=== PATIENT | female | born 1945 | race Caucasian/White ===

== ENCOUNTER 2017-11-17 02:52 | Inpatient (IN) | payer OTHER, MEDICARE ==
--- NOTE | 2017-11-14 12:34 | History & Physical Pre-Op ---
General Information and HPI History of Present Illness: Presents for re-evaluation of colonic stricture. Reattempt at colonoscopy was unsuccessful in traversing stricture in sigmoid colon. Subsequent barium enema shows stricture in mid-sigmoid. c/o occasional LLQ abdominal pain and difficulty passing bowel movements. No n/v. Allergies/Medications Allergies: Coded Allergies: MDX - Adhesive (ADHESIVE) (PULLS SKIN OFF - PAPER TAPE IS OK PER PT 08/06/16) MDX - TAPE (TAPE) (PER PT PAPER TAPE IS OKAY 08/06/16) Home Med list Cyanocobalamin (Vitamin B-12) 1,000 MCG TABLET 1 TAB PO DAILY SUPPLEMENT ( Reported) Diltiazem Cd (Diltiazem ER) 120 MG CAP.ER.DEG 120 MG PO DAILY HEAR RATE CONTROL Furosemide 20 MG TABLET 1 TAB PO DAILY PRN DIURETIC (Reported) Losartan Potassium 50 MG TABLET 1 TAB PO QAM HEART (Reported) Magnesium Oxide 400 MG TABLET 400 MG PO DAILY PRN PER PROTOCOL (Reported) Metoprolol Tartrate 100 MG TABLET 1 TAB PO BID HEART (Reported) Oxycodone HCl/Acetaminophen (Percocet 5-325 MG Tablet) 1 EACH TABLET 1 TAB PO Q4-6 PRN BREAKTHROUGH PAIN Oxycodone HCl/Acetaminophen (Percocet 5-325 MG Tablet) 5 MG-325 MG TABLET 1-2 TAB PO Q8P PRN pain Potassium Chloride 10 MEQ TABLET.ER 1 TAB PO PRN SUPPLEMENT (Reported) Simvastatin (Zocor) 10 MG TABLET 1 TAB PO QPM CHOLESTEROL (Reported) Warfarin Sodium (Coumadin) 5 MG TABLET 1 TAB PO DAILY BLOOD THINNER (Reported ) Past History Medical History Neurological: NONE EENT: NONE Cardiovascular: AFIB, hypertension, hyperlipidemia, STEMI, mechanical aortic and mitral valve replacement, rheumatic fever, SMA stent Respiratory: NONE Gastrointestinal: diverticulitis, irritable bowel syndrome Hepatic: NONE Renal: NONE Musculoskeletal: NONE Psychiatric: NONE Endocrine: NONE Blood Disorders: anemia Cancer(s): NONE History of MRSA: No History of VRE: No History of CDIFF: No Surgical History Pertinent Surgical History: cataract removal, hip replacement (b/l), tubal ligation, AAA repair, aortic valve replacement x 2 , mitral valve replacement, b /l hip replacements Past Family/Social History Family History Relations & Conditions if any BROTHER FATHER FH: prostate cancer BROTHER Psychosocial History Services at Home None Smoking Status: Former Smoker Functional Ability ADLs Independent: dressing, eating, toileting, bathing. Ambulation: independent IADLs Independent: shopping, housework, finances, food prep, telephone, medication admin. Review of Systems Review of Systems: Patient reports abdominal pain but reports no vomiting, no vomiting blood, normal appetite, no diarrhea, no constipation, no rectal bleeding, and no history of GERD. She reports no fatigue, no fever, no night sweats, no significant weight gain, no significant weight loss, and no exercise intolerance. She reports no abnormal moles, no jaundice, no hives, no eczema, and no rashes. She reports no swollen glands and no neck stiffness. She reports no cough, no wheezing, no shortness of breath, and no coughing up blood. She reports no chest pain, no arm pain on exertion, no shortness of breath when walking, no shortness of breath when lying down, no palpitations, and no leg swelling. She reports no incontinence, no difficulty urinating, no hematuria, and no increased frequency. She reports no muscle aches, no muscle weakness, no arthralgias/joint pain, and no back pain. She reports no loss of consciousness, no weakness, no numbness, no seizures, no dizziness, no loss of balance, no fall in the past year, and no fall since last visit. Exam & Diagnostic Data Physical Exam: Patient is a 72-year-old female. Constitutional: General Appearance: healthy-appearing and obese. Level of Distress: no acute distress. Ambulation: ambulating normally. Head: Head: normocephalic and atraumatic. Neck: Neck: supple, trachea midline, no masses, and full range of motion. Thyroid: no enlargement or nodules and non-tender. Lymph Nodes: no cervical LAD, supraclavicular LAD, axillary LAD, or inguinal LAD. Cardiovascular: Heart Auscultation: normal S1 and S2; no murmurs, rubs, or gallops; and regularly irregular; aortic and mitral valve click. Lungs: Respiratory effort: no dyspnea. Percussion: no dullness, flatness, or hyperresonance. Auscultation: no wheezing, rales/crackles, or rhonchi and breath sounds normal, good air movement, and clear to auscultation. Back: Thoracolumbar Appearance: normal curvature. Abdomen: Inspection and Palpation: no tenderness, guarding, masses, rebound tenderness, or CVA tenderness and soft and non-distended. Bowel Sounds: normal. Liver: non-tender and no hepatomegaly. Spleen: non-tender and no splenomegaly. Hernia: none palpable. Skin: Inspection and palpation: no rash, lesions, ulcer, induration, nodules, jaundice, or abnormal nevi and good turgor. Musculoskeletal:: Extremities: no cyanosis, varicosities, or palpable cord and edema. Motor Strength and Tone: normal tone and motor strength. Joints, Bones, and Muscles: no contractures, malalignment, tenderness, or bony abnormalities and normal movement of all extremities. Assessment/Plan Assessment/Plan: 1. Stricture of colon - Disease appears to be progressive over past year. recommend laparoscopic sigmoid colectomy before colonic obstruction develops. K56.699: Other intestinal obstruction unspecified as to partial versus complete obstruction Discussion Notes Discussed the risk of surgery including but not limited to: bleeding requiring transfusion, infection, anastomotic leak requiring reoperation as well as medical complications including cardiac, pulmonary and thromboembolism. As Ranked By This Provider Problem List: 1. Colon stricture 2. Other specified intestinal obstruction
[~2017-11-17] VITALS: Ht 152.4 cm; Wt 80.3 kg
[~2017-11-17 02:52] MED LIST: CARDIZEM CD 12120 MG PO; COUMADIN5 M2; FUROSEMIDE20 MG PO; LOPRESSOR100 M1 PO; LOSARTAN POTASS50 MG PO; LOVENOX40 MG/0.1 SC; MAGNESIUM OXID400 MG PO; PERCOCET 5-3251 EACH PO; POTASSIUM CHLO10 ME1 PO; VITAB121000 PO; ZOCOR10 M1
--- NOTE | 2017-11-17 12:14 | Cons- Cardiology ---
General Information and HPI Consulting Request Date of Consult: 11/17/17 Requested By: Liban PARRA,Hans Mullen Reason for Consult: Atrial fibrillation, prosthetic valve Source of Information: patient, family, old records History of Present Illness: This is a pleasant 72-year-old female with a past medical history of known atrial fibrillation, mechanical aortic and mechanical mitral valve prosthetics, hypertension, hyperlipidemia, and history of aortic aneurysm repair who is here for elective sigmoid colectomy due to colonic stricture. This morning she had some mild palpitations and some nausea; denies progressive shortness of breath or chest pain and the symptoms were short in duration. She notes that she does get these symptoms intermittently and does report feeling some anxiety this morning as well. On my interview with her in the same day surgery holding area she was back to baseline with no persistent symptoms. She is on outpatient Lovenox bridge for the planned surgery with no bleeding issues. Reports no headache, slurring of speech, focal weakness, syncope, or paroxysmal nocturnal dyspnea. Allergies/Medications Allergies: Coded Allergies: No Known Allergies (11/14/17) Home Med List: Enoxaparin Sodium (Lovenox) 40 MG/0.4 ML SYRINGE 0.4 ML SC DAILY ANTICOAGULATION (Reported) Metoprolol Tartrate 100 MG TABLET 1 TAB PO BID HEART (Reported) Simvastatin (Zocor) 10 MG TABLET 1 TAB PO QPM CHOLESTEROL (Reported) Warfarin Sodium (Coumadin) 5 MG TABLET 1 TAB PO DAILY BLOOD THINNER (Reported ) Current Medications: Current Medications Sig/Corby Start time Last Medication Dose Route Stop Time Status Admin Cefazolin Sodium 2,000 MG ONCE ONE 11/17 0830 CAN IV 11/18 0831 Cefazolin Sodium 2,000 MG ONCE 11/17 0000 NR IV 11/17 2359 Metronidazole 500 MG ONCE ONE 11/17 0830 DC N/A 1 UNIT IV 11/17 0929 Review of Systems Review of Systems: Review of systems as per HPI. The remainder of a 10 point review of systems was reviewed and was otherwise negative. Past History Medical History Neurological: NONE EENT: NONE Cardiovascular: AFIB, hypertension, hyperlipidemia, STEMI, mechanical aortic and mitral valve replacement rheumatic fever SMA stent Respiratory: NONE Gastrointestinal: diverticulitis, irritable bowel syndrome Hepatic: NONE Renal: NONE Musculoskeletal: NONE Psychiatric: NONE Endocrine: NONE Blood Disorders: anemia Cancer(s): NONE Surgical History Surgical History: cataract removal, hip replacement (b/l), tubal ligation, AAA repair, aortic valve replacement x 2 , mitral valve replacement, b/l hip replacements Family History Relations & Conditions If Any: BROTHER FATHER FH: prostate cancer BROTHER Psychosocial History Services at Home: None Smoking Status: Former Smoker Functional Ability ADLs Independent: dressing, eating, toileting, bathing. Ambulation: independent IADLs Independent: shopping, housework, finances, food prep, telephone, medication admin. Exam & Diagnostic Data Vital Signs and I&O Vital signs reviewed; stable Physical Exam: General: no apparent distress. Alert. Eyes: No obvious scleral icterus. HEENT: No jugular venous distention or abnormal jugular venous pulsations. Cardiovascular: Normal intensity S1/S2. Irregular; mechanical valve sounds noted Respiratory: Lungs clear to auscultation bilaterally. Abdomen: no guarding or rebound tenderness. Musculoskeletal: No clubbing or cyanosis noted Skin: Warm Neurologic: No gross focal deficits noted. Labs/Bob Results: Microbiology 11/17 1103 URINE ROUT: Urine Culture - COLB Recent labs were reviewed and show normal creatinine Diagnostic Data EKG Results Tracing was personally reviewed and shows atrial fibrillation with heart rate 91 bpm and possible left ventricular hypertrophy Other Results Echocardiogram from 09/2017 Normal biventricular function with grossly normal mechanical aortic and mitral prosthetic valves Assessment/Plan Assessment/Plan 1. Colonic stricture planned for elective laparoscopic sigmoid colectomy bridged with outpatient Lovenox 2. Known atrial fibrillation 3. History of mechanical aortic and mechanical mitral valve 4. On chronic anticoagulation with Coumadin 5. History of aortic aneurysm repair 6. History of hypertension and hyperlipidemia The patient remains stable from a cardiac standpoint with no evidence of acute coronary syndrome or decompensated congestive heart failure. She can proceed with planned surgery at mild to moderate cardiovascular risk based on her history. Resume anticoagulation post surgery as soon as deemed safe by the surgical team. Continue her outpatient AV tarik blockers which can be administered intravenously as needed while she is unable to take by mouth. She should be maintained on telemetry after surgery. Neo Raman MD [facility] Consult Acknowledgment - Thank you for your consult request.
--- NOTE | 2017-11-17 15:40 | Operative Report ---
Operative/Inv Procedure Report Surgery Date: 11/17/17 Name of Procedure: Laparoscopic converted to open sigmoid colectomy with takedown of splenic flexure Pre-Operative Diagnosis: Ischemic clonic stricture Post-Operative Diagnosis: Same Estimated Blood Loss: 50ml to 100ml Surgeon/Plastic Extruding Machine Operator: Liban PARRA,Hans Mullen/Demetris YOUNG Anesthesia: general endotracheal tube Specimens: Sigmoid colon Operative Indication: See preoperative H&P Operative/Procedure Note Note: Patient brought to the operating room and laid supine. Gen. anesthesia was obtained and her abdomen was prepped and draped in lithotomy position. Skin above the umbilicus was infiltrated local anesthesia and a longitudinal incision made sharply. We came down to the fascia bluntly and grasped with Millwood's. Fasciotomies crated sharply and stay suture placed. Pneumoperitoneum achieved. A 5 mm port was placed in the right mid abdomen, a 5 mm port was placed in the suprapubic region and a 12 mm port was placed in the right lower quadrant after local anesthesia was instilled under direct vision and camera. There were some adhesions of omentum to the anterior abdominal wall which were taken down with cautery and LigaSure dissection. The sigmoid colon was identified and explored. There was a dense inflammatory reaction around it. It felt like a rock. There was a loop of small bowel adherent to it which was taken off with sharp and blunt dissection. We then took down the white line of Toldt with cautery. We tried to dissect the area where the colon was adhered to the pelvic brim but could not free it up safely. At this point converted to an open operation through a midline incision. Subcutaneous tissues tissues dissected with cautery and the fascia was incised with cautery. Bookwalter retraction system was placed and the small bowel packed up into the right upper quadrant. There was fallopian tube and ovary, left-sided densely adherent to the sigmoid colon as well as to the pelvic brim. These tissues were peeled off with blunt and cautery dissection. The ureter was identified and preserved. We chose a line of proximal transection and created a window in the mesentery with cautery. The bowel was divided with a SWETA stapler. The mesentery was then taken with LigaSure device. Cut down to the rectosigmoid junction and divided the vasculature posteriorly. Upper rectum was then divided with a TA stapler. The specimen of sigmoid colon was passed off the field. We assessed for length of the colon. It was clear that we would have to take down the splenic flexure as there was really no redundancy to the sigmoid. The duct and the white line of Toldt with cautery and lengthened our fascial incision to provide exposure to the splenic flexure. Splenic flexure was then taken down with cautery. Was mobilized. This portion of the operation took quite a bit of time due to multiple adhesions of small bowel to the colon as well as the omentum to the anterior abdominal wall. These were all present due to her previous open aortic aneurysm repair. The mesentery was peeled off the aneurysm sac. It was, fibrotic there and limited mobilization of the colon. Once we took down the splenic flexure we could get a reasonable anastomosis without undue tension. We then open the staple line after placing an automatic purse [place]. Colon was sized to a 31 EEA and the anvil placed into it. The pursestring was cinched down. I then broke scrub and went down below and performed proctoscopy. Sizers were placed up to the rectal stump serially to dilate the area. I then passed past the stapler through the rectum but could not get it to the end were we needed it. Given the tenuous nature of necessary length to provide a tension- free anastomosis, we really needed to get the stapler to the end. Multiple tests were taken. We spent about an hour trying to pass the EEA stapler up to the rectal stump. Eventually I aborted that portion the procedure. I elected to perform a handsewn anastomosis rather than trying it 28 EEA. I thought were that another pursestring with further shorten the amount of colon needed and I did not want to have unnecessary tension. Of note the bowel was quite viable from a vascular standpoint. A single layer handsewn anastomosis was performed with interrupted 3-0 silk sutures. We tested the anastomosis under water and there was no leaks. Pelvis and irrigated normal saline. All packs were removed and sponge counts were correct. The fascia was then closed with a running 0 Maxon suture. Skin incisions closed with anish. Sterile dressings were applied. Sponge and needle counts are correct. CC: Mariya PARRA,Marquis Cordova; María PARRA,Fallon Templeton; Gen PARRA,Yahir Stewart
--- NOTE | 2017-11-17 16:39 | PN- Student ---
Geovany Bunn 11/17/17 4328: Subjective Subjective: POST OPERATIVE NOTE Claudia is a 72yo female presenting 3 hours post op colon resection r /t colonic stricture. Patient is complaining of 7/10 'burning' pain near her incisional site. She is currently on 2L Nasal Cannula, has a juan catheter in place- urine is yellow and clear, and IVF (dextrose K). She is alert and oriented during the exam and does not have any other questions or concerns at this time. Denies: H/A, changes in vision, SOB, chest pain, N/V/D, numbness/tingling in extremities or lightheadedness. Objective Objective: GENERAL: A+Ox4, in NAD, lying in bed supine. HEENT: pinpoint pupils, EOM intact, nasal cannula 2L in place. RESP: fair respiratory effort, CTAB. CARDIO: Irregular rate, irregular rythm (Hx of Afib/ mitral valve replacement and aortic valve replacement). - Cardiac monitoring in place: shows Afib with rate of 100bpm. ABD: Loud normoactive bowel sounds in all 4 quadrants. Nontender with light palpation, nondistended. Large firm mass noted in LLQ with blue/purple bruising noted. Patient denies pain on palpation. Dressing dry, intact and shows minimal spotting of blood at the incisional site. No BM/flatus at this time. MUSC: 5/5 strength throughout. No edema noted. NEURO: Sensation intact, cranial nerves grossly intact. Assessment/Plan Assessment: Claudia is a 72yo Caucasain female 3hr post op colonic resection r/t stricture. She is recovering well from the procedure and is in no acute distress. She is on 2L O2 via nasal cannula, IVF, juan catheter in place and is on cardiac monitoring. She has no questions or concerns at this time. Plan: Continue cardiac monitoring. Remove juan cath in am 11/18/2017. Continue pain medications PRN and periprocedural antibiotics. Begin clear liquid diet. Encourage Claudia to ambulate to chair/bathroom tomorrow (11/18/2017). Continue to monitor large firm mass in LLQ + bruising.- Likely 2/2 lovenox injection site. Pending labs to be ordered in am. Demetris Anegl 11/17/17 1167: Resident Review Statement Resident Statement: examined this patient, amended to note Other Findings: sp sigmoid colectomy 2/2 divertic/stricture heparin sq for dvt ppx heparin drip due to hx of afib starting in 1-2 days, coumadin bridge npo tonight, clears in am tele monitoring due to hx of afib pain meds as needed monitor for return of bowel function ivf am labs. long juan in am dressing change pod2
[2017-11-17 16:40] VITALS: BP 112/72
[2017-11-17 18:40] VITALS: BP 116/70
[2017-11-17 22:21] VITALS: BP 110/60
[2017-11-18 01:00] VITALS: BP 106/66
[2017-11-18 05:15] VITALS: BP 122/74
[2017-11-18 08:14] LABS: ABSOLUTE BASOPHIL COUNT 0 /CUMM (0.0-0.2); ABSOLUTE EOSINOPHIL COUNT 0 /CUMM (0.0-0.7); ABSOLUTE GRANULOCYTE CT 6.5 /CUMM (1.4-6.5); ABSOLUTE LYMPH COUNT 0.6 /CUMM (1.2-3.4); ABSOLUTE MONOCYTE COUNT 0.6 /CUMM (0.10-0.60); BASOPHIL % 0.1 % (0.0-2.0); EOSINOPHIL % 0 % (0-5); GRANULOCYTE % 84.2 % (42.2-75.2); HEMATOCRIT 30.6 % (37-47); MEAN CORPUSCULAR VOLUME 88.3 FL (81.0-99.0); MEAN PLATELET VOLUME 8.3 FL (7.4-10.4); PLATELET COUNT 253 /CUMM (130-400); RED BLOOD CELL CT 3.47 /CUMM (4.20-5.40); WHITE BLOOD CELL COUNT 7.7 /CUMM (4.8-10.8)
--- NOTE | 2017-11-18 08:53 | PN- General Surgery ---
See Addendum Subjective Subjective: Patient has no major complaints this morning. Overall she reports being thirsty and has been tolerating sips of water with her meds this morning. No nausea or vomiting. She is not passing flatus or having bowel movements as of yet. She had low urine output overnight and received 500 mL bolus 1. Objective Vital Signs and I&Os Vital Signs Date Time Temp Pulse Resp B/P B/P Pulse O2 O2 Flow FiO2 Mean Ox Delivery Rate 11/18 0822 94 122/74 11/18 0515 98.1 121 18 122/74 97 Nasal 2.0L Cannula 11/18 0100 98.1 107 16 106/66 98 Nasal 2.0L Cannula 11/18 0000 Nasal 2.0L Cannula 11/17 2221 97.9 89 16 110/60 97 Nasal 2.0L Cannula 11/17 2138 Nasal 2.0L Cannula 11/17 2113 102 110/62 11/17 1840 97.7 102 14 116/70 96 Nasal 2.0L Cannula 11/17 1640 97.5 105 14 112/72 96 Nasal 2.0L Cannula 11/17 1640 96 Nasal 2.0L Cannula Intake & Output 11/18 1600 11/18 0800 11/18 0000 11/17 1600 11/17 0800 11/17 0000 Intake Total 600 520 Output Total 125 120 Balance 475 400 Intake, IV 600 500 Intake, Oral 20 Output, Urine 125 120 Patient 178 lb Weight Physical Exam: Gen.: Patient is awake and alert. No acute distress. Cardiac: Irregular, tachycardic. Audible click of the valves noted. Pulmonary: Lungs are clear bilaterally. Abdomen: Soft with mild to moderate distention. Mild leanne-incisional tenderness is noted, within expected limits. There are scattered areas of ecchymosis, due to subcutaneous injections. No significant firmness is noted in the left lower quadrant in comparison to prior exams. Normoactive bowel sounds are heard. Extremities: There is mild to moderate edema of both lower extremities, left slightly greater versus right. Patient states that the swelling appears very close to baseline but maybe slightly increased. Tenderness is appreciated. Assessment/Plan Assessment/Plan Patient is a 72-year-old female who is now postoperative day #1 status post laparoscopic converted to open sigmoid colectomy for ischemic colonic stricture. Plan: -Okay to advance to clear liquid diet this morning. -Although urine output is low, we will use caution with IV fluids given her cardiac history. We'll decrease IV fluid rate to 75 per hour for about the next 6 hours to finish the current bag and then hep lock fluids. -Renew [place] today for monitoring of critical I's and O's. -Encourage out of bed and possible ambulation today. -Follow-up morning labs. Monitor H&H. If blood counts remain stable, the plan is to start a heparin drip with a bridge back to Coumadin. Okay to continue subcutaneous heparin/ALPs for DVT ppx for now. -Pain control with IV morphine for now. By mouth Percocet was added to patient' s regimen and can be given when tolerating by mouth. -Will discuss with attending. Core Measures Venous Thromboembolism VTE Risk Factors Surgery No Mechanical VTE Prophylaxis d/t N/A MechProphylax Ordered No VTE Pharm Prophylaxis d/t NA PharmProphylax ordered
[2017-11-18 10:00] VITALS: BP 122/74
[2017-11-18 14:47] VITALS: BP 104/64
[2017-11-18 19:59] LABS: ABSOLUTE BASOPHIL COUNT 0 /CUMM (0.0-0.2); ABSOLUTE EOSINOPHIL COUNT 0 /CUMM (0.0-0.7); ABSOLUTE GRANULOCYTE CT 7.2 /CUMM (1.4-6.5); ABSOLUTE LYMPH COUNT 0.8 /CUMM (1.2-3.4); ABSOLUTE MONOCYTE COUNT 0.7 /CUMM (0.10-0.60); BASOPHIL % 0.1 % (0.0-2.0); EOSINOPHIL % 0 % (0-5); GRANULOCYTE % 83.5 % (42.2-75.2); HEMATOCRIT 25.7 % (37-47); MEAN CORPUSCULAR HGB 29.3 PG (27.0-31.0); MEAN CORPUSCULAR HGB CONC 32.8 G/DL (33.0-37.0); MEAN CORPUSCULAR VOLUME 89.4 FL (81.0-99.0); MEAN PLATELET VOLUME 7.9 FL (7.4-10.4); PLATELET COUNT 218 /CUMM (130-400); RBC DISTRIBUTION WIDTH 14.5 % (11.5-14.5); RED BLOOD CELL CT 2.87 /CUMM (4.20-5.40); WHITE BLOOD CELL COUNT 8.6 /CUMM (4.8-10.8)
[2017-11-18 22:02] VITALS: BP 114/70
[2017-11-19 02:16] LABS: PTT > 120 SEC (25-37)
[2017-11-19 06:30] VITALS: BP 126/68
--- NOTE | 2017-11-19 07:11 | PN- Student ---
See Addendum Geovany Bunn 11/19/17 0710: Subjective Subjective: Claudia is a 72yo female day 2 post op sigmoid colectomy. She states she has constant 5/10 'sharp/stabbing' RUQ pain which is worse upon palpation. Patient is also complaining of 8/10 'sharp' R shoulder pain which is releived with light/deep palpation- Claudia admits this has happened with past anesthesia and it typically resolves with time. This pain does not radiate to the jaw or shoulder. She has not had a BM since the procedure but has been passing flatus since yesterday afternoon. Claudia has had minor complications relating to her fluid intake/output since her procedure on 11/17/2017.. She states she still feels 'very dry' but that this feeling has improved since yesterday (increased IVF). Patient denies: H/A, changes in vision, SOB, chest pain, N/V/D, numbness/ tingling in any extremities, dizziness or lightheadedness. No other complaints at this time. Objective Objective: GENERAL: Patient lying in bed comfortably with pleasant affect, A+Ox4 in NAD. HEENT: pinpoint pupils bilaterally, 2L O2 nasal cannula in place. No JVD noted. RESP: Decreased respiratory effort r/t discomfort- diminished breath sounds - CTAB. CARDIO: Irregular rate, irregular rhythm, S1 and S2 audible throughout, no M/R/G appreciated at this time. Patient is on cardiac catheterization technician. ABD: Soft, tender in RUQ on light palpation, non distended. LLQ has firm mass with superficial bruising noted- likely 2/2 lovenox injection site. Vertical dressingn is in place with minimal dry blood noted at incision site. No warmth/ erythema noted. No signs of infection. : Juan catheter in place. Container was recently emptied- tubing shows light straw colored urine. MUSC: 5/5 strength throughout, full ROM in UE/LE. No edema noted in extremities bilaterally. No pain upon palpation of UE/LE. R shoulder has full ROM, non painful upon palpation. NEURO: Cranial nerves grossly intact. Sensation intact throughout. Assessment/Plan Assessment: Claudia is a 72yo Caucasain female s/p day 2 sigmoid colectomy. She is recovering well from her procedure and is in no acute distress. Patient currently has juan catheter, 2L o2 nasal cannula and IVF in place. She does not show any signs of fluid overload and states she still 'feels dry.' She has not had a BM but is passing flatus since yesterday afternoon. Plan: Continue cardiac monitoring. Continue to monitor fluid input/output closely. - Keep juan catheter in place, note color/amount of output. - Will discuss increasing IVF with preceptor. - Will discuss increasing NPO to clear liquid diet with preceptor. Encourage [facility] to ambulate out of bed today. Dona Weeks 11/19/17 1832: Objective Results Results: Laboratory Tests 11/19/17 0940: PT 23.9 H, INR 2.29 H, APTT 86 H 11/19/17 0650: Anion Gap 6, Estimated GFR 55 L, BUN/Creatinine Ratio 20.0, Magnesium 1.7, CBC w Diff NO MAN DIFF REQ, RBC 3.06 L, MCV 89.0, MCH 30.2, RDW 14.7 H, MPV 8.0, Gran % 81.9 H, Lymphocytes % 10.2 L, Monocytes % 7.4, Eosinophils % 0.2, Basophils % 0.3, Absolute Granulocytes 7.4 H, Absolute Lymphocytes 0.9 L, Absolute Monocytes 0.7 H, Absolute Eosinophils 0, Absolute Basophils 0, PUBS MCHC 33.9 11/19/17 0115: APTT > 120 *H 11/18/17 1932: Anion Gap 6, Estimated GFR 34 L, BUN/Creatinine Ratio 13.3, CBC w Diff NO MAN DIFF REQ, RBC 2.87 L, MCV 89.4, MCH 29.3, RDW 14.5, MPV 7.9, Gran % 83.5 H, Lymphocytes % 8.8 L, Monocytes % 7.6, Eosinophils % 0, Basophils % 0.1, Absolute Granulocytes 7.2 H, Absolute Lymphocytes 0.8 L, Absolute Monocytes 0.7 H, Absolute Eosinophils 0, Absolute Basophils 0, PUBS MCHC 32.8 L 11/18/17 0626: Anion Gap 7, Estimated GFR > 60, BUN/Creatinine Ratio 21.3, CBC w Diff MAN DIFF ORDERED, RBC 3.47 L, MCV 88.3, MCH 30.0, RDW 14.0, MPV 8.3, Gran % 84.2 H, Lymphocytes % 8.3 L, Monocytes % 7.4, Eosinophils % 0, Basophils % 0.1, Absolute Granulocytes 6.5, Segmented Neutrophils 71, Band Neutrophils 10 H, Absolute Lymphocytes 0.6 L, Lymphocytes 11 L, Monocytes 8, Absolute Monocytes 0.6, Absolute Eosinophils 0, Absolute Basophils 0, Platelet Estimate VERIFIED BY SMEAR, Poikilocytosis 1+, [place] Cells 1+, PUBS MCHC 34.0 Microbiology 11/17 1103 URINE ROUT: Urine Culture - CAN Cancelled: SPECIMEN NOT RECEIVED IN LABORATORY 11/17 1055 URINE ROUT: Urine Culture - RECD Assessment/Plan Plan: Pt seen and examined She was dry yesterday with decreased urine output and tachy to 133 although she also has a history of a fib IVF increased and boluses given with good response Last two juan outputs 200+ She still feels very thirsty - IVF is at 125cc/hr Her lungs sound clear HR now in the 90's tolerating clear liquids, No BM - +flatus Will continue clears while awaiting bowel function Restart coumadin today per Dr Leong hep gtt to continue as a bridge to therapeutic INR Hct 27 today, INR 2.29 follow up labs in am continue juan today for strict I/O - likely dc in am
[2017-11-19 07:54] LABS: ABSOLUTE BASOPHIL COUNT 0 /CUMM (0.0-0.2); ABSOLUTE EOSINOPHIL COUNT 0 /CUMM (0.0-0.7); ABSOLUTE GRANULOCYTE CT 7.4 /CUMM (1.4-6.5); ABSOLUTE LYMPH COUNT 0.9 /CUMM (1.2-3.4); ABSOLUTE MONOCYTE COUNT 0.7 /CUMM (0.10-0.60); BASOPHIL % 0.3 % (0.0-2.0); EOSINOPHIL % 0.2 % (0-5); GRANULOCYTE % 81.9 % (42.2-75.2); HEMATOCRIT 27.2 % (37-47); MEAN CORPUSCULAR HGB 30.2 PG (27.0-31.0); MEAN CORPUSCULAR HGB CONC 33.9 G/DL (33.0-37.0); PLATELET COUNT 236 /CUMM (130-400); RBC DISTRIBUTION WIDTH 14.7 % (11.5-14.5); RED BLOOD CELL CT 3.06 /CUMM (4.20-5.40)
[2017-11-19 11:01] LABS: PTT 86 SEC (25-37)
--- NOTE | 2017-11-19 13:49 | RADIOLOGY REPORT ---
EXAMINATION: CR PORTABLE CHEST CLINICAL INFORMATION: Crackles. Hypoxia. Evaluate for atelectasis versus fluid overload. COMPARISON: Chest x-ray dated 04/23/2015 and 04/21/2015. TECHNIQUE: Portable AP semierect view of the chest was obtained. FINDINGS: The patient is status post median sternotomy and mitral valve repair. Cardiomediastinal silhouette is enlarged. Ectasia and tortuosity of the aorta is seen. There is slight elevation of the right hemidiaphragm with bibasilar parenchymal opacities seen, possibly due to atelectasis or pneumonia. There is also some patchy opacity in the right upper lobe. Left upper lobe and right midlung are clear. No significant effusion is seen. There is a sliver of free air seen under the right hemidiaphragm. Bony structures are unremarkable. IMPRESSION: 1. Free air under the right hemidiaphragm. 2. Low lung volumes with bibasilar and patchy right upper lobe parenchymal opacities, possibly due to multifocal pneumonia versus atelectasis. This critical result was discussed with HANNAH Frederick, 11/19/2017, 1:45 PM and it was ascertained that the content and urgency of this report was understood at the time of direct communication. In discussion with Suzanne Wilkinson, findings are consistent with residual intra-abdominal air 2 days status post laparoscopic abdominal surgery.
[2017-11-19 14:50] VITALS: BP 112/68
[2017-11-19 16:27] LABS: PT 23.9 SEC (9.4-12.5)
[2017-11-19 22:02] LABS: PTT 73 SEC (25-37)
[2017-11-19 22:20] VITALS: BP 136/88
[2017-11-20 06:35] VITALS: BP 130/70
--- NOTE | 2017-11-20 06:45 | PN- Student ---
Geovany Bunn 11/20/17 0644: Subjective Subjective: Claudia is a 72yo female s/p day 3 post op sigmoid colectomy. She continues to complain of sharp diffuse abdominal pain. She states this pain is a 1/10 when lying flat in bed and an 8/10 when moving/standing/walking. She says she feels 'full of gas.' She has ambulated out of bed yesterdayx1 to sit in chair. Claudia also describes constant nausea which has worsened overnight. Her right shoulder pain has completely subsided. Claudia has not had a BM since the procedure and states she has not been passing flatus although she has been belching frequently. Juan catheter is in place with clear dark yellow urine. IVF and 4L humidified O2 per nasal cannula in place. Denies H/A, SOB, chest pain, vomitting, diarrhea, paresthesias or lightheadedness. Objective Objective: GENERAL: Lying supine comfortably in bed, in no acute distress. A+Ox4. Patient has depressed affect today. RESP: Fair respiratory effor, CTAB. CARDIO: Irregular rate, irregular rhythm- HR 120bpm. Hx of Afib- paleobotanist in place. No JVD noted. ABD: Hypertympanic upon percussion. Normoactive bowel sounds in all 4 quadrants. Moderate pain on light/deep palpation throughout abdomen. Dressing is clean, dry and in place with minimal dried blood noted at incision site. No signs of erythema/infection. MUSC: 5/5 strength throughout, full ROM. Extremities moderately swollen- patient states this is normal for her, no pitting edema. No pain upon palpation of UE or LE. NEURO: Cranial nerves grossly intact. Sensation intact throughout. Results Results: Laboratory Tests 11/19/17 2123: APTT 73 H 11/19/17 0940: PT 23.9 H, INR 2.29 H, APTT 86 H 11/19/17 0650: Anion Gap 6, Estimated GFR 55 L, BUN/Creatinine Ratio 20.0, Magnesium 1.7, CBC w Diff NO MAN DIFF REQ, RBC 3.06 L, MCV 89.0, MCH 30.2, RDW 14.7 H, MPV 8.0, Gran % 81.9 H, Lymphocytes % 10.2 L, Monocytes % 7.4, Eosinophils % 0.2, Basophils % 0.3, Absolute Granulocytes 7.4 H, Absolute Lymphocytes 0.9 L, Absolute Monocytes 0.7 H, Absolute Eosinophils 0, Absolute Basophils 0, PUBS MCHC 33.9 11/19/17 0115: APTT > 120 *H 11/18/17 1932: Anion Gap 6, Estimated GFR 34 L, BUN/Creatinine Ratio 13.3, CBC w Diff NO MAN DIFF REQ, RBC 2.87 L, MCV 89.4, MCH 29.3, RDW 14.5, MPV 7.9, Gran % 83.5 H, Lymphocytes % 8.8 L, Monocytes % 7.6, Eosinophils % 0, Basophils % 0.1, Absolute Granulocytes 7.2 H, Absolute Lymphocytes 0.8 L, Absolute Monocytes 0.7 H, Absolute Eosinophils 0, Absolute Basophils 0, PUBS MCHC 32.8 L 11/18/17 0626: Anion Gap 7, Estimated GFR > 60, BUN/Creatinine Ratio 21.3, CBC w Diff MAN DIFF ORDERED, RBC 3.47 L, MCV 88.3, MCH 30.0, RDW 14.0, MPV 8.3, Gran % 84.2 H, Lymphocytes % 8.3 L, Monocytes % 7.4, Eosinophils % 0, Basophils % 0.1, Absolute Granulocytes 6.5, Segmented Neutrophils 71, Band Neutrophils 10 H, Absolute Lymphocytes 0.6 L, Lymphocytes 11 L, Monocytes 8, Absolute Monocytes 0.6, Absolute Eosinophils 0, Absolute Basophils 0, Platelet Estimate VERIFIED BY SMEAR, Poikilocytosis 1+, [place] Cells 1+, PUBS MCHC 34.0 Microbiology 11/17 1103 URINE ROUT: Urine Culture - CAN Cancelled: SPECIMEN NOT RECEIVED IN LABORATORY 11/17 1055 URINE ROUT: Urine Culture - RECD Assessment/Plan Assessment: Claudia is a 72yo female s/p day 3 post op sigmoid colectomy. Patient is recovering well from the procedure although shows possible signs of obstruction as she has not passed gas or BM since the procedure and is hypertympanic upon percussion. Patient has experienced mild complications post op because 2/2 CHF and fluid imbalance. She does not show any signs of fluid overload. Plan: PT consult- encourage mild ambulation throughout the day. Increase IVF as her urine is dark in color and her mucus membranes are dry. - Keep juan catheter in place to monitor I/O adequately. Change dressing from procedure and visualize wound directly. Begin soft food diet as tolerated. Rosalee Gauthier 11/20/17 0803: Subjective Subjective: "I wish I felt better". Nauseous, no vomiting. Belching, no flatus, no BM. barely taking sips clears. minimal OOB. Denies CP/SOB/palps. Objective Objective: GEN: NAD CARD: tachy, irreg irreg. HR on monitor 120-140s. PULM: decreased at bases ABD: dist, ttp, soft, dressing changed- serosang drainage inferior aspect of dressing. post sites cdi. anish intact EXT: calves soft nt Results Results: Laboratory Tests 11/20/17 0635: Anion Gap 4 L, Estimated GFR > 60, BUN/Creatinine Ratio 17.1, PT Pending, INR Pending, CBC w Diff Pending, WBC Pending, RBC Pending, Hgb Pending, Hct Pending, MCV Pending, MCH Pending, RDW Pending, Plt Count Pending, MPV Pending, PUBS MCHC Pending 11/19/17 2123: APTT 73 H Assessment/Plan Plan: AP: POD3 sp lap sigmoid, awaating return bowel fxn, with extensive cardiac history, currently in rapid afib, with nausea likely due to combination of postop ileus and rapid afib, on hep gtt-coum bridge, with resolved BREANA. -give home BB now. If HR without response, will give additional iv bb. will ask for additional cards input -dc juan. strict I&Os - prn pain meds - keep clear liquids. await further bowel fxn. - oob , ambulate. - as long as INR tx today, will dc hep gtt and cont coum per inr - cont IVF - will dw attending
[2017-11-20 07:57] LABS: ABSOLUTE BASOPHIL COUNT 0 /CUMM (0.0-0.2); ABSOLUTE EOSINOPHIL COUNT 0.1 /CUMM (0.0-0.7); ABSOLUTE GRANULOCYTE CT 6.3 /CUMM (1.4-6.5); ABSOLUTE LYMPH COUNT 0.7 /CUMM (1.2-3.4); ABSOLUTE MONOCYTE COUNT 0.4 /CUMM (0.10-0.60); BASOPHIL % 0.2 % (0.0-2.0); EOSINOPHIL % 0.9 % (0-5); HEMATOCRIT 25.4 % (37-47); MEAN CORPUSCULAR HGB 29.7 PG (27.0-31.0); MEAN CORPUSCULAR HGB CONC 33.7 G/DL (33.0-37.0); MEAN CORPUSCULAR VOLUME 88.1 FL (81.0-99.0); MEAN PLATELET VOLUME 7.9 FL (7.4-10.4); RBC DISTRIBUTION WIDTH 14.9 % (11.5-14.5); RED BLOOD CELL CT 2.88 /CUMM (4.20-5.40); WHITE BLOOD CELL COUNT 7.5 /CUMM (4.8-10.8)
[2017-11-20 08:15] LABS: PT 23.8 SEC (9.4-12.5)
[2017-11-20 08:52] LABS: GRANULOCYTE % 83.7 % (42.2-75.2); PLATELET COUNT 203 /CUMM (130-400)
--- NOTE | 2017-11-20 09:21 | PN- General Surgery ---
Surgical Brief Attending Note Brief Attending Note: Overall slow resolution of ileus. continue clears. Patient with mobilization of third spaced fluids now. can decrease ivf and remove juan. continue heparin/ coumadin, goal INR 2.5-3.5.
[2017-11-20 10:37] LABS: PTT 61 SEC (25-37)
[2017-11-20 12:00] VITALS: BP 128/70
--- NOTE | 2017-11-20 12:49 | PN- Cardiology ---
Subjective Subjective: Patient continues to complain of intractable nausea. Denies any chest pain or palpitations. No bowel movement but reports passing gas this morning. Objective Vital Signs and I&Os Vital Signs Date Time Temp Pulse Resp B/P B/P Pulse O2 O2 Flow FiO2 Mean Ox Delivery Rate 11/20 1200 97.8 116 20 128/70 93 Nasal 2.0L Cannula 11/20 08 120 138/80 11/20 0800 Nasal 2.0L Cannula 11/20 0635 98.7 104 20 130/70 93 Nasal 2.0L Cannula 11/19 2220 97.6 106 18 136/88 100 Nasal Cannula 11/19 2135 Nasal 2.0L Cannula 11/19 2113 106 136/88 11/19 1600 97 Nasal 2.0L Cannula 11/19 1450 97.5 96 20 112/68 97 Nasal 2.0L Cannula Intake & Output 11/20 1600 11/20 0800 11/20 0000 11/19 1600 11/19 0800 11/19 0000 Intake Total 876 743.5 1100 1050 300 Output Total 550 550 225 200 225 100 Balance -550 326 518.5 900 825 200 Intake, IV 756 433.5 1000 1050 300 Intake, Oral 120 310 100 Output, Urine 550 550 225 200 225 100 Physical Exam: General: no apparent distress. Alert. Eyes: No obvious scleral icterus. HEENT: No jugular venous distention or abnormal jugular venous pulsations. Cardiovascular: Normal intensity S1/S2. Irregular; mechanical valve sounds noted Respiratory: Lungs clear to auscultation bilaterally. Abdomen: Soft Musculoskeletal: No clubbing or cyanosis noted Skin: Warm Neurologic: No gross focal deficits noted. Current Medications: Current Medications Sig/Corby Start time Last Medication Dose Route Stop Time Status Admin Acetaminophen 650 MG Q6P PRN 11/17 1700 AC PO Atorvastatin Calcium 5 MG 1700 11/17 1700 AC 11/19 PO 1713 Dextrose/Sodium 1,000 ML Q10H 11/18 1615 AC 11/19 Chloride IV 2314 Heparin Sodium 25,000 UNIT Q24H 11/18 1845 AC 11/18 (Porcine) IV 1854 Sodium Chloride 500 ML Metoprolol Tartrate 100 MG BID 11/17 2200 AC 11/20 PO 0807 Morphine Sulfate 2 MG Q4P PRN 11/18 220 AC 11/19 IV 1713 Ondansetron HCl 4 MG Q6P PRN 11/17 1700 AC 11/20 IV 0359 Oxycodone/ 1 TAB Q4P PRN 11/18 899 AC Acetaminophen PO Oxycodone/ 2 TAB Q4P PRN 11/18 899 AC Acetaminophen PO Promethazine HCl 12.5 MG Q6P PRN 11/17 1700 AC 11/20 IV 11/24 1459 0729 Trimethobenzamide HCl 200 MG 4 TIMES/DAY PRN 11/20 799 AC 11/20 IM 1104 Warfarin Sodium 5 MG COUMADIN 170 ONE 11/20 170 AC PO 11/20 170 Warfarin Sodium 5 MG COUMADIN 170 ONE 11/19 1700 DC 11/19 PO 11/19 1701 1713 Results Last 48 Hrs of Labs/Mics: Laboratory Tests 11/20/17 1000: APTT 61 H 11/20/17 0635: Anion Gap 4 L, Estimated GFR > 60, BUN/Creatinine Ratio 17.1, PT 23.8 H, INR 2.29 H, CBC w Diff NO MAN DIFF REQ, RBC 2.88 L, MCV 88.1, MCH 29.7, RDW 14.9 H, MPV 7.9, Gran % 83.7 H, Lymphocytes % 9.3 L, Monocytes % 5.9, Eosinophils % 0.9, Basophils % 0.2, Absolute Granulocytes 6.3, Absolute Lymphocytes 0.7 L, Absolute Monocytes 0.4, Absolute Eosinophils 0.1, Absolute Basophils 0, PUBS MCHC 33.7 11/19/17 2123: APTT 73 H 11/19/17 0940: PT 23.9 H, INR 2.29 H, APTT 86 H 11/19/17 0650: Anion Gap 6, Estimated GFR 55 L, BUN/Creatinine Ratio 20.0, Magnesium 1.7, CBC w Diff NO MAN DIFF REQ, RBC 3.06 L, MCV 89.0, MCH 30.2, RDW 14.7 H, MPV 8.0, Gran % 81.9 H, Lymphocytes % 10.2 L, Monocytes % 7.4, Eosinophils % 0.2, Basophils % 0.3, Absolute Granulocytes 7.4 H, Absolute Lymphocytes 0.9 L, Absolute Monocytes 0.7 H, Absolute Eosinophils 0, Absolute Basophils 0, PUBS MCHC 33.9 11/19/17 0115: APTT > 120 *H 11/18/17 1932: Anion Gap 6, Estimated GFR 34 L, BUN/Creatinine Ratio 13.3, CBC w Diff NO MAN DIFF REQ, RBC 2.87 L, MCV 89.4, MCH 29.3, RDW 14.5, MPV 7.9, Gran % 83.5 H, Lymphocytes % 8.8 L, Monocytes % 7.6, Eosinophils % 0, Basophils % 0.1, Absolute Granulocytes 7.2 H, Absolute Lymphocytes 0.8 L, Absolute Monocytes 0.7 H, Absolute Eosinophils 0, Absolute Basophils 0, PUBS MCHC 32.8 L Recent Imaging Studies: Telemetry tracings were personally reviewed and show atrial fibrillation with rapid ventricular response rate Assessment/Plan Assessment/Plan 1. Colonic stricture planned for elective laparoscopic sigmoid colectomy bridged with outpatient Lovenox; s/p open sigmoid colectomy with takedown of splenic flexure 2. Known atrial fibrillation 3. History of mechanical aortic and mechanical mitral valve 4. On chronic anticoagulation with Coumadin 5. History of aortic aneurysm repair 6. History of hypertension and hyperlipidemia Patient reports feeling quite uncomfortable with persistent nausea which I suspect is in part driving her tachycardia; can continue the twice a day Lopressor and start on Cardizem drip for the time being until her postoperative symptoms improve. Continue on heparin drip until INR is above 2.5. Neo Raman MD [facility] Continue telemetry? Yes
[2017-11-20 14:53] VITALS: BP 138/84
[2017-11-20 22:16] VITALS: BP 122/62
[2017-11-20 23:03] LABS: PTT 67 SEC (25-37)
[2017-11-21 06:15] VITALS: BP 118/78
--- NOTE | 2017-11-21 07:05 | PN- Student ---
Geovany Bunn 11/21/17 0705: Subjective Subjective: Patient is a 72yo female post op day 4 s/p sigmoid colectomy. Today she states her pain is minimal (1/10) and she is 'feeling much better.' She attributes this to the onset of passing flatus yesterday afternoon. She says this flatus is paired with small dark maroon blood clots/minimal BRBPR. Claudia says her appetite has returned and she would like to start eating foods as she is feeling much better today. Denies JESSICA, vision changes, SOB, chest pain, N/V/D, paresthesias or syncope. No complaints at this time. Objective Objective: GENERAL: Patient is lying supine comfortably in bed, in no acute distress. She has a pleasant affect and is A+Ox4. Patient is on 3L humidified O2 per nasal cannula, IVF in place. Juan catheter was removed 11/20/2017. She has been urinating~ 200ml per episode without discomfort. Urine was left in hat- clear, straw yellow, small white particles floating 2/2 juan removal. RESP: Increased respiratory effort from previous visits. CTAB. CARDIO: Irregular rate, irregular rhythm- Afib- on security assessor/cardizem drip. No M/R/G noted. ABD: Dressing has been removed 11/20/17. Incision is clean, dry and free of any signs of erythema/infection. She has one large vertical linear incision at the midline and 2 small incision points on the right side of the abdomen- all healing well. Abdomen is less distended than on previous visits. Mild tenderness in RLQ on deep palpation. Tympanic throughout. Loud normoactive bowel sounds audbile in all 4 quadrants. MUSC: 5/5 strength and full ROM throughout. No edema. Non painful to palpation. NEURO: sensation intact throughout. Results Results: Laboratory Tests 11/21/17 0631: Sodium Pending, Potassium Pending, Chloride Pending, Carbon Dioxide Pending, Anion Gap Pending, BUN Pending, Creatinine Pending, BUN/Creatinine Ratio Pending , PT Pending, INR Pending, CBC w Diff Pending, WBC Pending, RBC Pending, Hgb Pending, Hct Pending, MCV Pending, MCH Pending, RDW Pending, Plt Count Pending, MPV Pending, PUBS MCHC Pending 11/20/17 2205: APTT 67 H 11/20/17 1000: APTT 61 H 11/20/17 0635: Anion Gap 4 L, Estimated GFR > 60, BUN/Creatinine Ratio 17.1, PT 23.8 H, INR 2.29 H, CBC w Diff NO MAN DIFF REQ, RBC 2.88 L, MCV 88.1, MCH 29.7, RDW 14.9 H, MPV 7.9, Gran % 83.7 H, Lymphocytes % 9.3 L, Monocytes % 5.9, Eosinophils % 0.9, Basophils % 0.2, Absolute Granulocytes 6.3, Absolute Lymphocytes 0.7 L, Absolute Monocytes 0.4, Absolute Eosinophils 0.1, Absolute Basophils 0, [facility] 33.7 11/19/17 2123: APTT 73 H 11/19/17 0940: PT 23.9 H, INR 2.29 H, APTT 86 H 11/19/17 0650: Anion Gap 6, Estimated GFR 55 L, BUN/Creatinine Ratio 20.0, Magnesium 1.7, CBC w Diff NO MAN DIFF REQ, RBC 3.06 L, MCV 89.0, MCH 30.2, RDW 14.7 H, MPV 8.0, Gran % 81.9 H, Lymphocytes % 10.2 L, Monocytes % 7.4, Eosinophils % 0.2, Basophils % 0.3, Absolute Granulocytes 7.4 H, Absolute Lymphocytes 0.9 L, Absolute Monocytes 0.7 H, Absolute Eosinophils 0, Absolute Basophils 0, [facility] 33.9 11/19/17 0115: APTT > 120 *H 11/18/17 1932: Anion Gap 6, Estimated GFR 34 L, BUN/Creatinine Ratio 13.3, CBC w Diff NO MAN DIFF REQ, RBC 2.87 L, MCV 89.4, MCH 29.3, RDW 14.5, MPV 7.9, Gran % 83.5 H, Lymphocytes % 8.8 L, Monocytes % 7.6, Eosinophils % 0, Basophils % 0.1, Absolute Granulocytes 7.2 H, Absolute Lymphocytes 0.8 L, Absolute Monocytes 0.7 H, Absolute Eosinophils 0, Absolute Basophils 0, [facility] 32.8 L Assessment/Plan Assessment: Claudia is a 72yo female recovering very well post op day 4 s/p sigmoid colectomy. Patient was previously experiencing mild complications 2/2 CHF and ileus. She has made major improvements since passing large amount of flatus 11/20/17. Her appetite has increased and she is in a good mood today. She has been ambulating about the room without major difficulty. No complaints at this time. Plan: Increase PO intake to clear liquids-> soft foods as tolerated. Continue IVF- monitor urine output. Continue to encourage ambulation throughout the unit with assistance. Decrease pain medications as pain scale has decreased significantly. Wilbert Sharma 11/21/17 0836: Subjective Subjective: less nausea today, tolerating clear diet has alot of gas, no bm appreciate cardio input hr controlled now on cardizem drip\ inr 3.87 this am also c/o some bleeding per rectum with flatus plan d/c heparin bridge gtt now advance diet per attending titrate coumdin per inr oob ambulate will d/w cardio change to po cardizem
[2017-11-21 07:53] LABS: ABSOLUTE BASOPHIL COUNT 0 /CUMM (0.0-0.2); ABSOLUTE EOSINOPHIL COUNT 0.1 /CUMM (0.0-0.7); ABSOLUTE GRANULOCYTE CT 5.6 /CUMM (1.4-6.5); ABSOLUTE LYMPH COUNT 0.7 /CUMM (1.2-3.4); ABSOLUTE MONOCYTE COUNT 0.4 /CUMM (0.10-0.60); BASOPHIL % 0.4 % (0.0-2.0); EOSINOPHIL % 1.7 % (0-5); GRANULOCYTE % 80.8 % (42.2-75.2); HEMATOCRIT 23.7 % (37-47); MEAN CORPUSCULAR HGB 29.9 PG (27.0-31.0); MEAN CORPUSCULAR HGB CONC 33.8 G/DL (33.0-37.0); MEAN CORPUSCULAR VOLUME 88.2 FL (81.0-99.0); PLATELET COUNT 206 /CUMM (130-400); RBC DISTRIBUTION WIDTH 14.5 % (11.5-14.5); RED BLOOD CELL CT 2.69 /CUMM (4.20-5.40); WHITE BLOOD CELL COUNT 6.9 /CUMM (4.8-10.8)
[2017-11-21 08:17] LABS: PT 39.2 SEC (9.4-12.5)
--- NOTE | 2017-11-21 08:51 | PN- General Surgery ---
Surgical Brief Attending Note Brief Attending Note: Ileus resolved. INR 3.7. Advance diet as tolerated. Stop heparin gtt. Hold coumadin tonight as she has received multiple doses without any oral intake otherwise. Suspect INR higher tomorrow. Cardizem per cards. Hopefully discharge in two days.
--- NOTE | 2017-11-21 11:17 | PN- Cardiology ---
Subjective Subjective: The patient is awake, alert, states feeling mild dyspnea The events of the last 24 hours as well as telemetry were reviewed. Review of Systems: The review of systems is negative for chest pains, palpitations nor lightheadedness. The remainder of the 14 point review of systems is noncontributory with the exception of above. Objective Vital Signs and I&Os Vital Signs Date Time Temp Pulse Resp B/P B/P Pulse O2 O2 Flow FiO2 Mean Ox Delivery Rate 11/21 0747 72 118/78 11/21 799 Nasal 2.0L Cannula 11/21 0615 98.6 72 18 118/78 97 Nasal 2.0L Cannula 11/21 0000 Nasal 2.0L Cannula 11/20 2216 98.3 67 18 122/62 95 Nasal 2.0L Cannula 11/20 1600 Nasal 2.0L Cannula 11/20 1453 97.5 63 20 138/84 97 Nasal Cannula 11/20 1200 97.8 116 20 128/70 93 Nasal 2.0L Cannula Intake & Output 11/21 1600 11/21 0000 11/20 1600 11/20 0000 Intake Total 1296 500 560 876 743.5 Output Total 150 400 825 550 225 Balance 1146 100 -265 326 518.5 Intake, IV 1196 300 500 756 433.5 Intake, Oral 100 200 60 120 310 Number 1 Bowel Movements Output, Urine 150 400 825 550 225 Patient 177 lb Weight Physical Exam: General: Nontoxic, no apparent distress. HEENT: Sclera and conjunctiva within normal limits, without xanthelasmas. Neck: Carotids 2+ without bruits. Respiratory: Scattered rhonchi, minimal rales, air movement is good, without accessory respiratory muscle use. Heart: Regular rate and rhythm, without murmurs, without JVD. Abdomen: Soft, nontender, no masses, normoactive bowel sounds. Extremities: Without clubbing, cyanosis, without edema. Neuro: Nonfocal exam, strength, 5 out of 5 Skin: Within normal limits without lesions. Psych: Mood and affect: Normal Current Medications: Current Medications Sig/Corby Start time Last Medication Dose Route Stop Time Status Admin Acetaminophen 650 MG Q6P PRN 11/17 1700 AC PO Atorvastatin Calcium 5 MG 1700 11/17 1700 AC 11/20 PO 1702 Dextrose/Sodium 1,000 ML Q10H 11/18 1615 DC 11/20 Chloride IV 1815 Diltiazem HCl 125 MG Q24H 11/20 1300 AC 11/20 Sodium Chloride 100 ML IV 1600 Heparin Sodium 25,000 UNIT Q24H 11/18 1845 DC 11/21 (Porcine) IV 0015 Sodium Chloride 500 ML Metoprolol Tartrate 100 MG BID 11/17 2199 AC 11/21 PO 0847 Morphine Sulfate 2 MG Q4P PRN 11/18 220 AC 11/20 IV 2007 Ondansetron HCl 4 MG Q6P PRN 11/17 1700 AC 11/20 IV 0359 Oxycodone/ 1 TAB Q4P PRN 11/18 09 AC Acetaminophen PO Oxycodone/ 2 TAB Q4P PRN 11/18 09 AC Acetaminophen PO Promethazine HCl 12.5 MG Q6P PRN 11/17 1700 AC 11/20 IV 11/24 1459 0729 Trimethobenzamide HCl 200 MG 4 TIMES/DAY PRN 11/20 08 AC 11/20 IM 1104 Warfarin Sodium 5 MG COUMADIN 1700 ONE 11/20 1700 DC 11/20 PO 11/20 1701 1702 Results Last 48 Hrs of Labs/Mics: Laboratory Tests 11/21/17 0631: Anion Gap 7, Estimated GFR > 60, BUN/Creatinine Ratio 15.0, PT 39.2 H, INR 3.78 H, CBC w Diff NO MAN DIFF REQ, RBC 2.69 L, MCV 88.2, MCH 29.9, RDW 14.5, MPV 8.0, Gran % 80.8 H, Lymphocytes % 10.6 L, Monocytes % 6.5, Eosinophils % 1.7, Basophils % 0.4, Absolute Granulocytes 5.6, Absolute Lymphocytes 0.7 L, Absolute Monocytes 0.4, Absolute Eosinophils 0.1, Absolute Basophils 0, PUBS MCHC 33.8 11/20/17 2205: APTT 67 H 11/20/17 1000: APTT 61 H 11/20/17 0635: Anion Gap 4 L, Estimated GFR > 60, BUN/Creatinine Ratio 17.1, PT 23.8 H, INR 2.29 H, CBC w Diff NO MAN DIFF REQ, RBC 2.88 L, MCV 88.1, MCH 29.7, RDW 14.9 H, MPV 7.9, Gran % 83.7 H, Lymphocytes % 9.3 L, Monocytes % 5.9, Eosinophils % 0.9, Basophils % 0.2, Absolute Granulocytes 6.3, Absolute Lymphocytes 0.7 L, Absolute Monocytes 0.4, Absolute Eosinophils 0.1, Absolute Basophils 0, PUBS MCHC 33.7 11/19/173: APTT 73 H Assessment/Plan Assessment/Plan 1. Colonic stricture with ileus, status post open sigmoid colectomy 2. Known atrial fibrillation 3. History of mechanical aortic and mechanical mitral valve 4. On chronic anticoagulation with Coumadin 5. History of aortic aneurysm repair 6. History of hypertension and hyperlipidemia Given the history of both mechanical aortic and mitral valves, we will continue to maintain an INR of approximately 2.5-3 using warfarin. The patient is a proximally 5 L positive over the past 4 days and has symptoms of mild dyspnea. Diuresis of approximately 1 L per day should be attempted using furosemide. Continue telemetry? Yes
[2017-11-21 14:42] VITALS: BP 120/72
[2017-11-21 22:12] VITALS: BP 124/70
[2017-11-22 06:53] VITALS: BP 118/62
--- NOTE | 2017-11-22 06:56 | PN- Student ---
Geovany Bunn 11/22/17 0655: Subjective Subjective: Claudia is a 72yo F post op day 5 s/p sigmoid colectomy. She states she continues to feel better with time, has started regular diet and has passed several 'loose' BM yesterday. She is voicing concerns of not knowing what to expect with her recovery. We discussed the healing process post op and answered many of her recovery questions. She is on 3L humidified O2, IVF and cardizem drip. No juan in place. Denies: JESSICA, vision changes, SOB, chest pain, abd pain, N/V, ext pain/weakness, syncope. No complaints at this time. Objective Objective: GENERAL: Pt lying supine comfortably in bed. Pleasant affect, A+Ox4. In NAD. RESP: Good resp effort, CTAB. Cardio: RRR, no M/R/G, S1/S2 audible. On gunnery/ordnance officer. ABD: Incision is clean dry and absent of any signs of infection/irritation. Soft , tender in RLQ upon deep palpation. Tympanic throughout. Loud normoactive bowel sounds audible in all 4 quadrants. MUSC: 5/5 strength and full ROM. No edema. NEURO: sensation intact Results Results: Laboratory Tests 11/21/17 1000: APTT Cancelled 11/21/17 0631: Anion Gap 7, Estimated GFR > 60, BUN/Creatinine Ratio 15.0, PT 39.2 H, INR 3.78 H, CBC w Diff NO MAN DIFF REQ, RBC 2.69 L, MCV 88.2, MCH 29.9, RDW 14.5, MPV 8.0, Gran % 80.8 H, Lymphocytes % 10.6 L, Monocytes % 6.5, Eosinophils % 1.7, Basophils % 0.4, Absolute Granulocytes 5.6, Absolute Lymphocytes 0.7 L, Absolute Monocytes 0.4, Absolute Eosinophils 0.1, Absolute Basophils 0, PUBS MCHC 33.8 11/20/17 2205: APTT 67 H 11/20/17 1000: APTT 61 H 11/20/17 0635: Anion Gap 4 L, Estimated GFR > 60, BUN/Creatinine Ratio 17.1, PT 23.8 H, INR 2.29 H, CBC w Diff NO MAN DIFF REQ, RBC 2.88 L, MCV 88.1, MCH 29.7, RDW 14.9 H, MPV 7.9, Gran % 83.7 H, Lymphocytes % 9.3 L, Monocytes % 5.9, Eosinophils % 0.9, Basophils % 0.2, Absolute Granulocytes 6.3, Absolute Lymphocytes 0.7 L, Absolute Monocytes 0.4, Absolute Eosinophils 0.1, Absolute Basophils 0, PUBS MCHC 33.7 11/19/17 2123: APTT 73 H 11/19/17 0940: PT 23.9 H, INR 2.29 H, APTT 86 H Assessment/Plan Assessment: Claudia is a 72yo F post op day 5 recovering well from sigmoid colectomy. Pt is slightly anxious about what to expect in her recovery process but seems to be improving each day. She is on regular diet and has been passing dark loose stools over the past day. Plan: Continue IVF Consult cariology r/t cardizem drip- pt appears to be in normal sinus. Encourage ambulation throughout the unit with assistance. Regular diet- avoid dairy products (pain with icecream last night). Continue pain meds as ordered. Dona Cleaning 11/22/17 0728: Assessment/Plan Plan: agree with above PA-S note tolerating fulls / toast. will advance diet to low residue diet encouraged oob/ambulation f/u labs. expect higher INR. hold coumadin until INR downtrending ?transition cardizem from IV to PO wean o2 as able. cardiology suggesting diuresis with lasix will discuss above with
[2017-11-22 07:48] LABS: ABSOLUTE BASOPHIL COUNT 0 /CUMM (0.0-0.2); ABSOLUTE EOSINOPHIL COUNT 0.1 /CUMM (0.0-0.7); ABSOLUTE GRANULOCYTE CT 4.4 /CUMM (1.4-6.5); ABSOLUTE LYMPH COUNT 0.8 /CUMM (1.2-3.4); ABSOLUTE MONOCYTE COUNT 0.4 /CUMM (0.10-0.60); BASOPHIL % 0.4 % (0.0-2.0); EOSINOPHIL % 1.8 % (0-5); GRANULOCYTE % 77.3 % (42.2-75.2); MEAN CORPUSCULAR HGB 29.7 PG (27.0-31.0); MEAN CORPUSCULAR HGB CONC 33.8 G/DL (33.0-37.0); MEAN CORPUSCULAR VOLUME 87.7 FL (81.0-99.0); MEAN PLATELET VOLUME 7.8 FL (7.4-10.4); PLATELET COUNT 211 /CUMM (130-400); RBC DISTRIBUTION WIDTH 14.7 % (11.5-14.5); RED BLOOD CELL CT 2.74 /CUMM (4.20-5.40); WHITE BLOOD CELL COUNT 5.7 /CUMM (4.8-10.8)
--- NOTE | 2017-11-22 08:37 | PN- General Surgery ---
Surgical Brief Attending Note Brief Attending Note: doing well. advance diet. lasix diuresis. cardizem management per cardiology. Anticipate d/c 1-2days,.
[2017-11-22 08:47] LABS: PT 43.1 SEC (9.4-12.5)
--- NOTE | 2017-11-22 11:39 | PN- Cardiology ---
Subjective Subjective: Reports feeling better today. No palpitations. Remains on nasal cannula. Objective Vital Signs and I&Os Vital Signs Date Time Temp Pulse Resp B/P B/P Pulse O2 O2 Flow FiO2 Mean Ox Delivery Rate 11/22 799 Nasal 2.0L Cannula 11/22 0653 97.9 90 18 118/62 96 Nasal Cannula 11/21 2212 97.6 89 18 124/70 96 11/21 2127 74 120/72 11/21 2027 Nasal 2.0L Cannula 11/21 1442 98.0 74 18 120/72 98 Nasal 2.0L Cannula Intake & Output 11/22 1600 11/22 0811/22 0000 11/21 1600 11/21 0811/21 0000 Intake Total 340 381 540 4786 500 Output Total 300 150 400 Balance 340 216 -20 1146 100 Intake, IV 40 16 40 1196 300 Intake, Oral 300 200 240 100 200 Number 1 Bowel Movements Output, Urine 300 150 400 Physical Exam: General: no apparent distress. Alert. On nasal cannula. Eyes: No obvious scleral icterus. HEENT: No jugular venous distention or abnormal jugular venous pulsations. Cardiovascular: Normal intensity S1/S2. Irregular; mechanical valve sounds noted Respiratory: Lungs clear to auscultation bilaterally. Abdomen: Soft Musculoskeletal: No clubbing or cyanosis noted; trace edema Skin: Warm Neurologic: No gross focal deficits noted. Current Medications: Current Medications Sig/Corby Start time Last Medication Dose Route Stop Time Status Admin Acetaminophen 650 MG Q6P PRN 11/17 170 AC PO Atorvastatin Calcium 5 MG 11/17 170 AC 11/21 PO 1842 Diltiazem HCl 125 MG Q24H 11/20 1300 AC 11/21 Sodium Chloride 100 ML IV 1138 Furosemide 20 MG ONCE ONE 11/22 0745 DC 11/22 IV PUSH 11/22 0746 1041 Metoprolol Tartrate 100 MG BID 11/17 2199 AC 11/22 PO 1041 Morphine Sulfate 2 MG Q4P PRN 11/18 2199 AC 11/21 IV 2127 Ondansetron HCl 4 MG Q6P PRN 11/17 1700 AC 11/20 IV 0359 Oxycodone/ 1 TAB Q4P PRN 11/18 899 AC Acetaminophen PO Oxycodone/ 2 TAB Q4P PRN 11/18 899 AC Acetaminophen PO Promethazine HCl 12.5 MG Q6P PRN 11/17 1700 AC 11/20 IV 11/24 1459 0729 Trimethobenzamide HCl 200 MG 4 TIMES/DAY PRN 11/20 0800 AC 11/20 IM 1104 Results Last 48 Hrs of Labs/Mics: Laboratory Tests 11/22/17 0630: Anion Gap 7, Estimated GFR > 60, BUN/Creatinine Ratio 13.3, PT 43.1 *H, INR 4.16 *H, CBC w Diff NO MAN DIFF REQ, RBC 2.74 L, MCV 87.7, MCH 29.7, RDW 14.7 H, MPV 7.8, Gran % 77.3 H, Lymphocytes % 13.4 L, Monocytes % 7.1, Eosinophils % 1.8, Basophils % 0.4, Absolute Granulocytes 4.4, Absolute Lymphocytes 0.8 L, Absolute Monocytes 0.4, Absolute Eosinophils 0.1, Absolute Basophils 0, PUBS MCHC 33.8 11/21/17 1000: APTT Cancelled 11/21/17 0631: Anion Gap 7, Estimated GFR > 60, BUN/Creatinine Ratio 15.0, PT 39.2 H, INR 3.78 H, CBC w Diff NO MAN DIFF REQ, RBC 2.69 L, MCV 88.2, MCH 29.9, RDW 14.5, MPV 8.0, Gran % 80.8 H, Lymphocytes % 10.6 L, Monocytes % 6.5, Eosinophils % 1.7, Basophils % 0.4, Absolute Granulocytes 5.6, Absolute Lymphocytes 0.7 L, Absolute Monocytes 0.4, Absolute Eosinophils 0.1, Absolute Basophils 0, PUBS MCHC 33.8 11/20/17 2205: APTT 67 H Recent Imaging Studies: Telemetry tracings were personally reviewed and show atrial fibrillation Assessment/Plan Assessment/Plan 1. Colonic stricture planned for elective laparoscopic sigmoid colectomy bridged with outpatient Lovenox; s/p open sigmoid colectomy with takedown of splenic flexure 2. Known atrial fibrillation 3. History of mechanical aortic and mechanical mitral valve 4. On chronic anticoagulation with Coumadin 5. History of aortic aneurysm repair 6. History of hypertension and hyperlipidemia Heart rate is controlled on intravenous Cardizem; would attempt to wean off today and if heart rate is then above goal can start on oral Cardizem 30 mg by mouth every 6. Attempt to wean off nasal cannula and if unable would obtain a repeat chest x-ray. Dose Coumadin to target INR 2.53.5. Neo Raman MD [facility] Continue telemetry? Yes
[2017-11-22 12:00] VITALS: BP 110/76
[2017-11-22 14:47] VITALS: BP 116/74
[2017-11-22 22:18] VITALS: BP 130/70
[2017-11-23 05:46] VITALS: BP 104/54
--- NOTE | 2017-11-23 06:59 | PN- Student ---
Geovany Bunn 11/23/17 0658: Subjective Subjective: Claudia is a 72yoF post op day 6 s/p sigmoid colectomy. She has been recovering well and states she is ready to go home today- although she is requesting to be seen by her renewable energy broker Dr. Chaudhari before discharge. She has 1/10 abdominal pain and has been having regular BM + flatus. Denies: H/A, vision changes, SOB, chest pain, abd pain, N/V/D, paresthesias or syncope No complaints at this time. Objective Objective: GENERAL: Pt sitting upright in bed comfortably, in NAD. A+Ox4. Nasal cannula was removed yesterday. IVF in place with cardizem drip. RESP: Good respiratory effort, CTAB. CARDIO: RRR, no M/R/G, on monitor and storage bin tender. Hx of Afib. No JVD. Pulses intact 2+ symmetrical. ABD: Vertical linear incision up midline of abdomen- no signs of infection/ irritation. Small gauze at distal end of incision- slightly damp with clear fluid. No signs of purulence. Soft, nontender, nondistended. Loud normoactive bowel sounds audible throughout. MUSC: 5/5 strength, full ROM, no edema noted. NEURO: Sensation intact throughout. Results Results: Laboratory Tests 11/23/17 0615: PT Pending, INR Pending 11/22/17 0630: Anion Gap 7, Estimated GFR > 60, BUN/Creatinine Ratio 13.3, PT 43.1 *H, INR 4.16 *H, CBC w Diff NO MAN DIFF REQ, RBC 2.74 L, MCV 87.7, MCH 29.7, RDW 14.7 H, MPV 7.8, Gran % 77.3 H, Lymphocytes % 13.4 L, Monocytes % 7.1, Eosinophils % 1.8, Basophils % 0.4, Absolute Granulocytes 4.4, Absolute Lymphocytes 0.8 L, Absolute Monocytes 0.4, Absolute Eosinophils 0.1, Absolute Basophils 0, PUBS MCHC 33.8 11/21/17 1000: APTT Cancelled 11/21/17 0631: Anion Gap 7, Estimated GFR > 60, BUN/Creatinine Ratio 15.0, PT 39.2 H, INR 3.78 H, CBC w Diff NO MAN DIFF REQ, RBC 2.69 L, MCV 88.2, MCH 29.9, RDW 14.5, MPV 8.0, Gran % 80.8 H, Lymphocytes % 10.6 L, Monocytes % 6.5, Eosinophils % 1.7, Basophils % 0.4, Absolute Granulocytes 5.6, Absolute Lymphocytes 0.7 L, Absolute Monocytes 0.4, Absolute Eosinophils 0.1, Absolute Basophils 0, PUBS MCHC 33.8 11/20/17 2205: APTT 67 H 11/20/17 1000: APTT 61 H Assessment/Plan Assessment: Claudia is a 72yoF post op day 6 s/p sigmoid colectomy. She is recovering well and is in no acute distress. She is currently on regular diet and has been passing loose and solid stools over the past 48 hours + flatus. Pt had increased fluid output (fluid balance -915) after restarting Lasix 09/22/18. INR 4.16- coumadin held yesterday. 2/2 PMHX- goal INR is 2-3. She is optomistic today and would like to discharge after being seen by her renewable energy broker (Dr. Chaudhari). will be able to assist in recovery process. No questions or complaints at this time. Plan: Continue to encourage ambulation and PO regular diet. Provide care instructions for incision site- follow up for staple removal in [address] Louie D/C morphine- continue outpt PO pain meds as ordered. Pending today INR levels- goal of 2-3. Likely restart coumadin. Per cardiology on 11/22/17- wean PT off of cardizem drip and switch to 30mg PO. -Once this transition has been made successfully, pt may be ready for discharge. Dona Cleaning 11/23/17 0808: Assessment/Plan Plan: tolerating diet d/c iv cardizem. start cardizem 30mg q6, as per cardiology note yesterday f/u INR likely d/c home today after seen by renewable energy broker will d/w
[2017-11-23 07:55] VITALS: BP 104/54
--- NOTE | 2017-11-23 08:13 | Patient Discharge Instructions ---
Discharge Instructions General Discharge Information You were seen/treated for: Ischemic colonic stricture You had these procedures: Surgery Date: 11/17/17 Name of Procedure: Laparoscopic converted to open sigmoid colectomy with takedown of splenic flexure Watch for these problems: fever>101.3, increased pain, redness/swelling/drainage, dizziness, shortness of breath, chest pains Call Surgeon to remove: Barnard (around post-op day#14) No bath, but you may shower: Yes Other wound care: shower to back. no baths/pools. keep incision clean & dry. dry guaze dressings if needed. Diet Continue normal diet: Yes Recommended Diet: Heart Healthy, Low Residue Activity Full Activity/No Limits: No Activity Self Limited: Yes Pounds, do NOT lift more than: 10 Other activity limits: no heavy lifting. no strenuous activity. Acute Coronary Syndrome Inclusion Criteria At DC or during hospital stay patient has or had the following: ACS DIAGNOSIS No Discharge Core Measures Meds if any: Prescribed or Continued at Discharge Meds if any: NOT Prescribed or Continued at Discharge Congestive Heart Failure Inclusion Criteria At DC or during hospital stay patient has or had the following: CHF DIAGNOSIS No Discharge Core Measures Meds if any: Prescribed or Continued at Discharge Meds if any: NOT Prescribed or Continued at Discharge Cerebrovascular accident Inclusion Criteria At DC or during hospital stay patient has or had the following: CVA/TIA Diagnosis No Discharge Core Measures Meds if any: Prescribed or Continued at Discharge Meds if any: NOT Prescribed or Continued at Discharge Venous thromboembolism Inclusion Criteria VTE Diagnosis No VTE Type NONE VTE Confirmed by (Test) NONE Discharge Core Measures - Per Current guidelines, there needs to be overlap - treatment for the first 5 days of Warfarin therapy. - If discharged on Warfarin prior to 5 days of - overlap therapy, the patient will need to be - assessed for post discharge needs including - *Post discharge parental anticoagulation - *Warfarin and/or parental anticoagulation education - *Follow up date to check INR post discharge At least 5 days overlap therapy as Inpatient No Meds if any: Prescribed or Continued at Discharge Note: Overlap Therapy is Warfarin and Anticoagulant Meds if any: NOT Prescribed or Continued at Discharge
[2017-11-23] MEDS ORDERED: PERCOCET 5-3251 EACH PO (08:16)
[2017-11-23 08:20] LABS: PT 35.6 SEC (9.4-12.5)
--- NOTE | 2017-11-23 08:57 | PN- Cardiology ---
Subjective Subjective: Telemetry reviewed. Atrial fibrillation with controlled ventricular rate of 70- 80. Patient feels well. No shortness of breath. Objective Vital Signs and I&Os Vital Signs Date Time Temp Pulse Resp B/P B/P Pulse O2 O2 Flow FiO2 Mean Ox Delivery Rate 11/23 0755 66 104/54 11/23 0546 97.6 66 20 104/54 93 Room Air 11/23 0000 Room Air 11/22 2218 98.3 87 20 130/70 93 Room Air 11/22 2059 87 130/70 11/22 1447 97.6 76 18 116/74 95 Room Air 11/22 1200 97.6 78 18 110/76 98 Room Air Intake & Output 11/23 1600 11/23 0800 11/23 0000 11/22 1600 11/22 0811/22 0000 Intake Total 27.5 480 515 340 216 Output Total 018 600 5067 Balance -322.5 -320 -935 340 216 Intake, IV 27.5 35 40 16 Intake, Oral 480 480 300 200 Number 1 Bowel Movements Output, Urine 617 784 8169 Physical Exam: On physical exam patient was comfortable sitting out of bed in a chair Head normocephalic atraumatic Eyes sclera anicteric conjunctiva showed mild pallor extraocular muscles were normal Neck no jugular venous distention no thyroid masses no palpable nodes Chest lungs were clear with few scattered basal crackles. Heart irregular rhythm with good metallic prosthetic clicks Abdomen soft scar of surgery Extremities no clubbing cyanosis or edema Neurological no gross motor or sensory deficits Current Medications: Current Medications Sig/Corby Start time Last Medication Dose Route Stop Time Status Admin Acetaminophen 650 MG Q6P PRN 11/17 170 AC PO Atorvastatin Calcium 5 MG [address]011/17 170 AC 11/22 PO 1551 Diltiazem HCl 30 MG Q6 11/23 0815 DC PO Diltiazem HCl 125 MG Q24H 11/20 1300 DC 11/22 Sodium Chloride 100 ML IV 1456 Metoprolol Tartrate 100 MG BID 11/17 2199 AC 11/23 PO 0755 Morphine Sulfate 2 MG Q4P PRN 11/18 2199 AC 11/21 IV 2127 Ondansetron HCl 4 MG Q6P PRN 11/17 1700 AC 11/20 IV 0359 Oxycodone/ 1 TAB Q4P PRN 11/18 09 AC 11/22 Acetaminophen PO 2259 Oxycodone/ 2 TAB Q4P PRN 11/18 0900 AC Acetaminophen PO Potassium Chloride 20 MEQ BID 11/22 1145 AC 11/23 PO 0755 Promethazine HCl 12.5 MG Q6P PRN 11/17 1700 AC 11/20 IV 11/24 1459 0729 Trimethobenzamide HCl 200 MG 4 TIMES/DAY PRN 11/20 0800 AC 11/20 IM 1104 Results Last 48 Hrs of Labs/Mics: Laboratory Tests 11/23/17 0615: PT 35.6 H, INR 3.43 H 11/22/17 0630: Anion Gap 7, Estimated GFR > 60, BUN/Creatinine Ratio 13.3, PT 43.1 *H, INR 4.16 *H, CBC w Diff NO MAN DIFF REQ, RBC 2.74 L, MCV 87.7, MCH 29.7, RDW 14.7 H, MPV 7.8, Gran % 77.3 H, Lymphocytes % 13.4 L, Monocytes % 7.1, Eosinophils % 1.8, Basophils % 0.4, Absolute Granulocytes 4.4, Absolute Lymphocytes 0.8 L, Absolute Monocytes 0.4, Absolute Eosinophils 0.1, Absolute Basophils 0, PUBS MCHC 33.8 11/21/17 1000: APTT Cancelled Assessment/Plan Assessment/Plan 1. Colonic stricture planned for elective laparoscopic sigmoid colectomy bridged with outpatient Lovenox; s/p open sigmoid colectomy with takedown of splenic flexure 2. Known atrial fibrillation 3. History of mechanical aortic and mechanical mitral valve 4. On chronic anticoagulation with Coumadin 5. History of aortic aneurysm repair 6. History of hypertension and hyperlipidemia Patient looks comfortable to be discharged. Her ventricular rate is very well controlled. Would not reinitiate diltiazem at the moment. Arrange for visiting nurses to check her heart rate. If apical heart rate is greater than 100 she has diltiazem 120 long-acting at home which can be restarted. For now PT/INR was supratherapeutic and she controls her warfarin and INR at home self- monitoring. Continue telemetry? No
--- NOTE | 2017-11-23 10:59 | Surgical Discharge Summary ---
Visit Information Visit Dates Admission Date: 11/17/17 Discharge Date: 11/23/17 History of Present Illness Chief Complaint: COLONIC OBSTRUCTION Medical History Blood Transfusion Hx: Yes Neurological: NONE EENT: NONE Cardiovascular: AFIB, hypertension, hyperlipidemia, STEMI, mechanical aortic and mitral valve replacement rheumatic fever SMA stent Respiratory: NONE Gastrointestinal: diverticulitis, irritable bowel syndrome Hepatic: NONE Renal: NONE Musculoskeletal: NONE Psychiatric: NONE Endocrine: NONE Blood Disorders: anemia Cancer(s): NONE History of MRSA: No History of VRE: No History of CDIFF: No Isolation History: Standard Surgical History Pertinent Surgical History: cataract removal, hip replacement (b/l), tubal ligation, AAA repair, aortic valve replacement x 2 , mitral valve replacement, b /l hip replacements Family History Relations & Conditions If Any: BROTHER FATHER FH: prostate cancer BROTHER Psychosocial History Where Do You Live? Home Who Do You Live With? Spouse Services at Home: None What is Your Primary Language? Maltese Review of Systems: SEE PREOP HP Hospital Course Course Attending Physician: Hans Louie MD Primary Care Physician: Fallon Daniel MD Hospital Course: PATIENT ADMITTED AFTER ELECTIVE SIGMOID COLECTOMY. PERIOPERATIVE COURSED MARKED BY CHRONIC ATRIAL FIBRILLATION WITH RAPID RESPONSE, MANAGED WITH CARDIZEM GTT. ILEUS RESOLVED AFTER THREE DAYS. DIET INITIATED. ANTICOAGULATION STARTED WITH HEPARIN GTT 24HOURS AFTER SURGERY DUE TO PRESENCE OF MECHANICAL MITRAL VALVE. Allergies: Coded Allergies: No Known Allergies (11/14/17) Significant Procedures: SIGMOID COLECTOMY Disposition Summary Disposition Principal Diagnosis: CHRONIC DIVERTICULITIS WITH ABSCESS Additional Diagnosis: ATRIAL FIBRILLATION Discharge Disposition: home or self care Discharge Instructions General Discharge Information Code Status: Full Code Patient's Diet: REGULAR Patient's Activity: NO LIFTING Follow-Up Instructions/Appts: ONE WEEK ARRANGED Medications at Discharge Discharge Medications: Stop taking the following medications: Enoxaparin Sodium (Lovenox) 40 MG/0.4 ML SYRINGE Inject into fatty tissue DAILY Continue taking these medications: Metoprolol Tartrate (Lopressor) 100 MG TABLET 100 Tablet ORAL TWICE DAILY Qty = 60 Comments: Last Taken: 11/23/17 Time:0759 Simvastatin (Zocor*) 10 MG TABLET Comments: Last Taken: 11/22/17 GIVEN LIPITOR Time: 1551 Warfarin Sodium (Coumadin) 5 MG TABLET Comments: Last Taken: 11/20/17 Time: 1104 Start taking the following new medications: Oxycodone HCl/Acetaminophen (Percocet 5-325 MG Tablet) 5 MG-325 MG TABLET 1-2 Tablet ORAL EVERY 4-6 HOURS NEEDED as needed for pain control Qty = 30 No Refills Instructions: alternatively to tylenol. do not combine. Comments: Last Taken: 11/22/14 Time: 2370 Copies To: María PARRA,Fallon Templeton; Gen PARRA,Yahir Stewart
== END 2017-11-23 12:50 | disposition home health service (06) | DRG 330 ==
LOC: 1NO 02:52 → SDA 02:52 → ENRESERV 15:06 → ENTRNSPT 16:05 → EDTRNSPTSTS 16:13 → EDTRNSPT 16:13 → 1NO 16:35 → CMPTRNSPT 18:06 → 1NO 11-21 11:03 → ENTRNSPT 11-23 12:27 → 1NO 11-23 12:50 → EDTRNSPTSTS 11-23 12:51 → EDTRNSPT 11-23 12:52 → CMPTRNSPT 11-23 13:09
PROVIDERS: Physician Assistant; Physician Assistant Surgical; Surgery
PROC: 0DTN0ZZ Resection of Sigmoid Colon, Open Approach (ICD-10-PCS; principal; 2017-11-17)
DX: K55.1 Chronic vascular disorders of intestine (principal); K91.30 Postprocedural intestinal obstruction, unspecified as to partial versus complete; N17.9 Acute kidney failure, unspecified; I48.91 Unspecified atrial fibrillation; Z79.01 Long term (current) use of anticoagulants; Z87.891 Personal history of nicotine dependence; Z95.2 Presence of prosthetic heart valve; I10 Essential (primary) hypertension; E78.5 Hyperlipidemia, unspecified; I25.2 Old myocardial infarction
CPT/HCPCS: 1NP; 36415; 71045; 82436; 87086; 88307; C9399; J0131; J0690; J1100; J1644; J1940; J2405; J2550; J3250; J3490; J7040; J7042; S5012